=== PATIENT | male | born 1960 | race Caucasian/White ===

== ENCOUNTER 2016-07-30 10:42 | Day surgery (SDC) | payer OTHER ==
[2016-07-29 15:11] VITALS: BMI 22.4
[2016-07-30] VITALS (12 sets, daily range): BP systolic 117–152; BP diastolic 70–94; PULSE 54–80; RESP 11–19; Ht 180.3 cm; Wt 80.8 kg
[~2016-07-30] VITALS: Ht 180.3 cm; Wt 80.8 kg
[~2016-07-30 10:42] MED LIST: CEFAZOLIN 1 GM INJ ONE; LIDOCAINE 2% (SDV) 5 ML INJ ONE; PROPOFOL 200 MG INJ ONE; ROCURONIUM 50 MG INJ ONE; SUCCINYLCHOLINE CHLORIDE 100 MG/5 ML SYG IV ONE
[2016-07-30] MEDS ORDERED: SOD CHLORIDE 0.9% 1,000 ML IV SCH (11:00)
[2016-07-30] MEDS ORDERED: CEFAZOLIN 2 GM/50 ML (PMX) 50 ML IVPB ONE (11:00)
[2016-07-30] MEDS ORDERED: EFAV1TAB PO (11:19)
[2016-07-30] MEDS ORDERED: CYCL-319 PO (11:19)
[2016-07-30] MEDS ORDERED: BUPIVACAINE 0.25% (MPF) 10 ML 10 ML VIAL INJ ONE (12:08)
[2016-07-30] MEDS ORDERED: FENTAnyl 50 MCG/ML VIAL ONE (12:24)
[2016-07-30] MEDS ORDERED: BUPIVACAINE 0.25% (MPF) 30 ML INJ ONE (12:43)
[2016-07-30] MEDS ORDERED: POLYMYXIN/BACITRACIN 1L IRRIG ONE (12:43)
[2016-07-30] MEDS ORDERED: MEPERIDINE 25 MG INJ IV PRN (13:00)
[2016-07-30] MEDS ORDERED: ONDANSETRON 4 MG INJ IV PRN (13:00)
[2016-07-30] MEDS ORDERED: FENTAnyl 50 MCG/ML VIAL IV PRN ×2 (13:00)
[2016-07-30] MEDS ORDERED: HYDROmorphONE (0.2 MG/ML) 10ML SYG IV PRN ×3 (13:00)
[2016-07-30] MEDS ORDERED: DIPHENHYDRAMINE 50 MG INJ IV PRN (13:00)
[2016-07-30] MEDS ORDERED: METOCLOPRAMIDE 10 MG INJ IV PRN (13:00)
[2016-07-30] MEDS ORDERED: HYDROCODONE/APAP (5/325) TAB PO ONE (13:30)
--- NOTE | 2016-07-30 14:04 | OPR ---
Date/Time of Note Date/Time of Note DATE: 07/30/16 TIME: 14:03 Operative Report Procedure Date: July 30, 2016 Preoperative Diagnosis rih Postoperative Diagnosis same Operation Performed rih repair with mesh right ilioinguinal nerve block Surgeon: Hitesh CONWAY Anesthesia: general Complications: None Hitesh CONWAY July 30, 2016 14:04
--- NOTE | 2016-07-30 14:10 | OPR ---
DATE OF OPERATION: 07/30/2016 INDICATION: This is a 56-year-old male with in a sliding right inguinal hernia. He requests surgic al repair. Risks, alternatives and benefits, and personnel were discussed with the patient. Patien t expressed understanding and consents to the operation. PREOPERATIVE DIAGNOSIS: Sliding right inguinal hernia. POSTOPERATIVE DIAGNOSIS: Sliding right inguinal hernia. OPERATION PERFORMED: 1. Open sliding right inguinal hernia repair with medium size Ultrapro hernia system mesh. 2. Ileal inguinal nerve block, CPT code 40486. SURGEON: Ariel Phelan MD SPECIMEN: None. COMPLICATIONS: None. ANESTHESIA: General. DESCRIPTION OF PROCEDURE: The patient was taken to the OR and prepped and draped in the usual steri le fashion. Surgical timeout was performed. IV antibiotics were given. Right inguinal oblique inc ision was made with a 10 blade. Dissection cautery was carried down to external oblique fascia. Ex ternal oblique fascia is opened with a 15 blade and this incision was extended medial inferiorly and lateral superiorly. Cord structures were identified and encircled with a Edmund drain, sliding in direct hernia was found. This was reduced in place. This defect is buttressed with the disk portio n of the UltraPro hernia system mesh. This mesh is secured in place with a running 0 Prolene from t he pubic tubercle along the shelving edge of the inguinal ligament and superiorly to the internal ob lique with interrupted 3-0 Vicryl. Onlay mesh was secured in a similar fashion with a running 0 Pro baldo from the pubic tubercle along the shelving edge of the inguinal ligament and superiorly to the internal oblique with interrupted 3-0 Vicryl. Straps are created to recreate the inguinal ring and reapproximated with interrupted 0 Prolene. External oblique fascia was closed with a running 3-0 Vi cryl. Bonnie's was closed with interrupted 3-0 Vicryl. Skin was closed using skin kai. Local anesthesia was injected into the incision. Right ilioinguinal block was then performed 2 cm medial and 2 separate inferior to the ASIS, a fanning approach was used to inject the ilioinguinal block. Dry dressings were applied. Dictated By: ARIEL PITT/SONIA Conf#: [id number] DID#: [id number]
== END 2016-07-30 16:30 | disposition home or self-care (01) ==
LOC: SDS 10:42
PROVIDERS: ATTEND Surgery
DX: K40.90 Unilateral inguinal hernia, without obstruction or gangrene, not specified as recurrent (principal)
CPT/HCPCS: 49505; C1781; J0330; J0690; J1170; J2175; J3010; Z7512; Z7610